=== PATIENT | female | born 1955 | race Caucasian/White ===

== ENCOUNTER 2019-05-28 20:53 | Inpatient (IN) | payer OTHER ==
[2019-05-28 21:24] VITALS: BMI 23.3
--- NOTE | 2019-05-28 21:57 | HP ---
CIWA Score Nausea/Vomitin Muscle Tremors: 2 Anxiety: 2 Agitation: 2 Paroxysmal Sweats: No Perspiration Orientation: 0-Oriented Tacttile Disturbances: 1-Very Mild Itch/Numbness Auditory Disturbances: 1-Very Mild Visual Disturbances: 1-Very Mild Sensitivity Headache: 0-None Present CIWA-Ar Total Score: 12 - Admission Criteria OASAS Guidelines: Admission for Medically Managed Detox: Requires at least one of the followin. CIWA greater than 12 2. Seizures within the past 24 hours 3. Delirium tremens within the past 24 hours 4. Hallucinations within the past 24 hours 5. Acute intervention needed for co occurring medical disorder 6. Acute intervention needed for co occurring psychiatric disorder 7. Severe withdrawal that cannot be handled at a lower level of care (continued vomiting, continued diarrhea, abnormal vital signs) requiring intravenous medication and/or fluids 8. Patient presents the following: CIWA greater than 12 Admission Criteria Met: Admission criteria met Admission ROS BHS - HPI Chief Complaint: i need to go to rehab and detox Allergies/Adverse Reactions: Allergies Allergy/AdvReac Type Severity Reaction Status Date / Time No Known Allergies Allergy Verified 05/28/19 21:11 History of Present Illness: longstanding ho etoh use beer and vodka 2 pints daily 6-7 tallboys daily x 2 weeks - Ebola screening Have you traveled outside of the country in the last 21 days: No (N) Have you had contact with anyone from an Ebola affected area: No Do you have a fever: No - Review of Systems Constitutional: Loss of Appetite EENT: reports: No Symptoms Reported Respiratory: reports: No Symptoms reported Cardiac: reports: No Symptoms Reported GI: reports: No Symptoms Reported : reports: No Symptoms Reported Musculoskeletal: reports: No Symptoms Reported Integumentary: reports: No Symptoms Reported Neuro: reports: No Symptoms reported Endocrine: reports: No Symptoms Reported Hematology: reports: No Symptoms Reported Psychiatric: reports: Anxious, Depressed Patient History - Patient Medical History Hx Anemia: No Hx Asthma: No Hx Chronic Obstructive Pulmonary Disease (COPD): No Hx Cancer: No Hx Cardiac Disorders: No Hx Congestive Heart Failure: No Hx Hypertension: Yes (metoprolo) Hx Hypercholesterolemia: No Hx Pacemaker: No HX Cerebrovascular Accident: No Hx Seizures: No Hx Dementia: No Hx Diabetes: No Hx Gastrointestinal Disorders: No Hx Liver Disease: No Hx Genitourinary Disorders: No Hx Sexually Transmitted Disorders: No Hx Renal Disease (ESRD): No Hx Thyroid Disease: No Hx Human Immunodeficiency Virus (HIV): No Hx Hepatitis C: No Hx Depression: No Hx Suicide Attempt: No Hx Bipolar Disorder: No Hx Schizophrenia: No Other Medical History: anxiety - Patient Surgical History Hx Section: Yes - Smoking Cessation Smoking history: Former smoker Have you smoked in the past 12 months: No Initiated information on smoking cessation: No - Substances abused Alcohol Substance route: Oral Frequency: Daily Amount used: 7 beers of 16 ounces Age of first use: 19 Date of last use: 05/28/19 Family Disease History - Family Disease History Family Disease History: [place]: Father Admission Physical Exam BHS - Vital Signs Vital Signs: Vital Signs - 24 hr 05/28/19 21:14 Temperature 96.6 F L Pulse Rate 65 Respiratory 18 Rate Blood Pressure 132/83 - Physical General Appearance: Yes: Alcohol on Breath, Anxious HEENTM: Yes: EOMI, Normal ENT Inspection, Normocephalic Respiratory: Yes: Chest Non-Tender, Lungs Clear, Normal Breath Sounds Neck: Yes: No masses,lesions,Nodules Breast: Yes: Breast Exam Deferred Cardiology: Yes: Regular Rhythm, Regular Rate, S1, S2 Abdominal: Yes: Normal Bowel Sounds, Non Tender Genitourinary: Yes: Within Normal Limits Back: Yes: Within Normal Limits, Normal Inspection Musculoskeletal: Yes: Within Normal Limits, full range of Motion, Gait Steady Extremities: Yes: Normal Capillary Refill, Normal Inspection, Normal Range of Motion, Non-Tender Neurological: Yes: contract design agent II-XII NML intact, Fully Oriented, Alert, Motor Strength 5/5, Normal Mood/Affect Integumentary: Yes: Within Normal Limits - Diagnostic (1) Alcohol dependence with withdrawal Current Visit: Yes Status: Acute (2) Hypertension Current Visit: Yes Status: Chronic Breathalyzer - Breathalyzer Breathalyzer: 0.146 Urine Drug Screen - Test Device Lot number: [id number] Expiration date: 03/06/21 - Control Is test valid?: Yes - Results Drug screen NEGATIVE: Yes Inpatient Rehab Admission - Rehab Decision to Admit Inpatient rehab admission?: No
[2019-05-28] MEDS ORDERED: MAGNESIUM HYDROX 2400MG/30ML ORAL SUSPENSION 30 ML CUP PO PRN (22:03)
[2019-05-28] MEDS ORDERED: ACETAMINOPHEN 325 MG TABLET (FP) PO PRN (22:03)
[2019-05-28] MEDS ORDERED: MAGNESIUM CITRATE 300 ML BOTTLE PO PRN (22:03)
[2019-05-28] MEDS ORDERED: BISMUTH SUBSALICYLATE 524 MG/30 ML UD PO PRN (22:03)
[2019-05-28] MEDS ORDERED: MENTHOL/PHENOL 1 EACH UD MM PRN (22:03)
[2019-05-28] MEDS ORDERED: hydrOXYzine PAMOATE 25 MG CAPSULE (FP) PO PRN (22:03)
[2019-05-28] MEDS ORDERED: MAG HYDROX/AL HYDROX/SIMETH 30 ML UNIT-DOSE CUP PO PRN (22:03)
[2019-05-28] MEDS: chlordiazePOXIDE HCL 25 MG CAPSULE PO SCH ×2 (23:30→23:36)
[2019-05-28] MEDS: MELATONIN 5 MG TABLETS PO PRN (23:31)
[2019-05-29] MEDS: chlordiazePOXIDE 5 MG CAPSULE PO SCH ×3 (05:48→22:47)
[2019-05-29] MEDS: ACETAMINOPHEN 325 MG TABLET (FP) PO PRN (09:14)
[2019-05-29] MEDS: PROCHLORPERAZINE MALEATE 5 MG TABLET PO PRN (09:48)
[2019-05-29] MEDS: PRENATAL VITAMINS W/ FOLIC ACID TABLET (FP) PO SCH (10:26)
[2019-05-29] MEDS: chlordiazePOXIDE HCL 10 MG CAPSULE PO PRN ×2 (10:27→17:59)
[2019-05-29 10:40] LABS: HEMATOCRIT 37.1 % (32.4-45.2); HEMOGLOBIN 12.5 GM/dL (10.7-15.3); MCH 31.5 pg (25.7-33.7); MCHC 33.8 g/dl (32.0-36.0); MEAN CELL VOLUME 93.1 fl (80-96); MEAN PLT VOLUME 8.4 fl (7.5-11.1); PLATELET COUNT 283 K/MM3 (134-434); RBC 3.98 M/mm3 (3.60-5.2); RDW 12.8 % (11.6-15.6); WHITE BLOOD COUNT 5.5 K/mm3 (4.0-10.0)
[2019-05-29 10:54] LABS: ALBUMIN 3.5 g/dl (3.4-5.0); BILIRUBIN,TOTAL 0.3 mg/dL (0.2-1); BLOOD UREA NITROGEN 17.5 mg/dL (7-18); CALCIUM 8.7 mg/dL (8.5-10.1); CREATININE 0.9 mg/dL (0.55-1.3); POTASSIUM 4.7 mmol/L (3.5-5.1)
[2019-05-29] MEDS: LOSARTAN POTASSIUM 25 MG TABLET PO SCH (11:27)
--- NOTE | 2019-05-29 11:47 | EKG ---
Test Reason : Blood Pressure : / mmHG Vent. Rate : 062 BPM Atrial Rate : 062 BPM P-R Int : 154 ms QRS Dur : 082 ms QT Int : 428 ms P-R-T Axes : 051 051 045 degrees QTc Int : 434 ms NORMAL SINUS RHYTHM NORMAL ECG NO PREVIOUS ECGS AVAILABLE Confirmed by RON METZGER, JONNIE ([id number]) on 05/29/2019 11:46:36 AM Referred By: Magda Millan Confirmed By:JONNIE VELASQUEZ MD
[2019-05-29] MEDS: IBUPROFEN 400 MG TABLET (FP) PO PRN (14:09)
--- NOTE | 2019-05-29 17:17 | PN ---
S CIWA - CIWA Score Nausea/Vomitin-Int. Nausea w/Dry Heave Muscle Tremors: 3 Anxiety: 4-Mod. Anxious/Guarded Agitation: 2 Paroxysmal Sweats: No Perspiration Orientation: 0-Oriented Tacttile Disturbances: 0-None Auditory Disturbances: 0-None Visual Disturbances: 1-Very Mild Sensitivity Headache: 0-None Present CIWA-Ar Total Score: 14 BHS Progress Note (SOAP) Subjective: Nausea, Dry Heaving, Anxious, Tremors. Objective: PATIENT PATIENT A & O X 3, OBSERVED AMBULATING ON UNIT UNASSISTED. IN NO ACUTE DISTRESS. 05/29/19 17:15 Vital Signs Temperature 97.1 F L 05/29/19 13:17 Pulse Rate 62 05/29/19 13:17 Respiratory Rate 18 05/29/19 13:17 Blood Pressure 165/99 05/29/19 13:17 O2 Sat by Pulse Oximetry (%) Laboratory Tests 05/29/19 05/29/19 05/29/19 07:00 07:00 07:00 WBC 5.5 RBC 3.98 Hgb 12.5 Hct 37.1 MCV 93.1 MCH 31.5 MCHC 33.8 RDW 12.8 Plt Count 283 MPV 8.4 Sodium 140 Potassium 4.7 Chloride 105 Carbon Dioxide 29 Anion Gap 6 L BUN 17.5 Creatinine 0.9 Est GFR (CKD-EPI)AfAm 79.42 Est GFR (CKD-EPI)NonAf 68.53 Random Glucose 77 Calcium 8.7 Total Bilirubin 0.3 AST 23 ALT 18 Alkaline Phosphatase 60 Total Protein 7.0 Albumin 3.5 RPR Titer Nonreactive LABS NOTED. Assessment: 05/29/19 17:15 WITHDRAWAL SYMPTOMS. HYPERTENSION. Plan: CONTINUE DETOX. PRN COMPAZINE PO FOR NAUSEA/ DRY HEAVING. BLOOD PRESSURE ELEVATED (PATIENT CURRENTLY PRESCRIBED LOSARTAN AND TOPROL XL - WILL CONTINUE TO MONITOR).
[2019-05-29] MEDS: THIAMINE HCL 100 MG TABLET (FP) PO SCH (22:47)
[2019-05-29] MEDS: MELATONIN 5 MG TABLETS PO PRN (22:48)
[2019-05-30] MEDS ORDERED: chlordiazePOXIDE HCL 10 MG CAPSULE PO PRN
[2019-05-30] MEDS: chlordiazePOXIDE HCL 10 MG CAPSULE PO SCH ×3 (05:30→22:25)
[2019-05-30] MEDS: ACETAMINOPHEN 325 MG TABLET (FP) PO PRN ×2 (09:24→19:40)
[2019-05-30] MEDS: PRENATAL VITAMINS W/ FOLIC ACID TABLET (FP) PO SCH (09:25)
[2019-05-30] MEDS: LOSARTAN POTASSIUM 25 MG TABLET PO SCH (09:25)
[2019-05-30] MEDS: PROCHLORPERAZINE MALEATE 5 MG TABLET PO PRN (09:25)
[2019-05-30] MEDS: METHOCARBAMOL 500 MG TABLET PO PRN ×2 (09:25→19:40)
--- NOTE | 2019-05-30 16:12 | PN ---
[facility] CIWA - CIWA Score Nausea/Vomitin Muscle Tremors: 3 Anxiety: 4-Mod. Anxious/Guarded Agitation: 2 Paroxysmal Sweats: No Perspiration Orientation: 0-Oriented Tacttile Disturbances: 0-None Auditory Disturbances: 0-None Visual Disturbances: 1-Very Mild Sensitivity Headache: 0-None Present CIWA-Ar Total Score: 12 BHS Progress Note (SOAP) Subjective: Anxious, Tremors, Nausea (Improving). Objective: PATIENT A & O X 3, OBSERVED AMBULATING ON UNIT UNASSISTED. IN NO ACUTE DISTRESS. 05/30/19 16:11 Vital Signs Temperature 97.5 F L 05/30/19 13:46 Pulse Rate 53 L 05/30/19 13:46 Respiratory Rate 18 05/30/19 13:46 Blood Pressure 150/86 05/30/19 13:46 O2 Sat by Pulse Oximetry (%) Laboratory Tests 05/29/19 05/29/19 05/29/19 07:00 07:00 07:00 WBC 5.5 RBC 3.98 Hgb 12.5 Hct 37.1 MCV 93.1 MCH 31.5 MCHC 33.8 RDW 12.8 Plt Count 283 MPV 8.4 Sodium 140 Potassium 4.7 Chloride 105 Carbon Dioxide 29 Anion Gap 6 L BUN 17.5 Creatinine 0.9 Est GFR (CKD-EPI)AfAm 79.42 Est GFR (CKD-EPI)NonAf 68.53 Random Glucose 77 Calcium 8.7 Total Bilirubin 0.3 AST 23 ALT 18 Alkaline Phosphatase 60 Total Protein 7.0 Albumin 3.5 RPR Titer Nonreactive LABS NOTED. Assessment: 05/30/19 16:11 WITHDRAWAL SYMPTOMS. HYPERTENSION. Plan: CONTINUE DETOX.
[2019-05-30] MEDS: MELATONIN 5 MG TABLETS PO PRN (22:25)
[2019-05-30] MEDS: THIAMINE HCL 100 MG TABLET (FP) PO SCH (22:25)
[2019-05-31] MEDS ORDERED: chlordiazePOXIDE HCL 10 MG CAPSULE PO ONE (05:00)
[2019-05-31] MEDS: chlordiazePOXIDE HCL 10 MG CAPSULE PO SCH ×2 (05:34→17:01)
[2019-05-31] MEDS: LOSARTAN POTASSIUM 25 MG TABLET PO SCH (10:53)
[2019-05-31] MEDS: ACETAMINOPHEN 325 MG TABLET (FP) PO PRN ×2 (10:54→17:01)
[2019-05-31] MEDS: METHOCARBAMOL 500 MG TABLET PO PRN ×3 (10:54→23:28)
[2019-05-31] MEDS: PRENATAL VITAMINS W/ FOLIC ACID TABLET (FP) PO SCH (10:55)
--- NOTE | 2019-05-31 15:37 | PN ---
[facility] CIWA - CIWA Score Nausea/Vomitin-No Nausea/No Vomiting Muscle Tremors: 2 Anxiety: 3 Agitation: 2 Paroxysmal Sweats: 1-Minimal Palms Moist Orientation: 0-Oriented Tacttile Disturbances: 0-None Auditory Disturbances: 0-None Visual Disturbances: 0-None Headache: 0-None Present CIWA-Ar Total Score: 8 S Progress Note (SOAP) Subjective: 64 years old female admitted on 05/28/19 for alcohol withdrawal sx management doing well with libirum detox regimen less tremor sleep better at night Objective: 05/31/19 15:38 Vital Signs Temperature 96.7 F L 05/31/19 13:22 Pulse Rate 65 05/31/19 13:22 Respiratory Rate 18 05/31/19 13:22 Blood Pressure 155/95 05/31/19 13:22 O2 Sat by Pulse Oximetry (%) Laboratory Last Values WBC 5.5 K/mm3 (4.0-10.0) 05/29/19 07:00 RBC 3.98 M/mm3 (3.60-5.2) 05/29/19 07:00 Hgb 12.5 GM/dL (10.7-15.3) 05/29/19 07:00 Hct 37.1 % (32.4-45.2) 05/29/19 07:00 MCV 93.1 fl (80-96) 05/29/19 07:00 MCH 31.5 pg (25.7-33.7) 05/29/19 07:00 MCHC 33.8 g/dl (32.0-36.0) 05/29/19 07:00 RDW 12.8 % (11.6-15.6) 05/29/19 07:00 Plt Count 283 K/MM3 (134-434) 05/29/19 07:00 MPV 8.4 fl (7.5-11.1) 05/29/19 07:00 Sodium 140 mmol/L (136-145) 05/29/19 07:00 Potassium 4.7 mmol/L (3.5-5.1) 05/29/19 07:00 Chloride 105 mmol/L (98-107) 05/29/19 07:00 Carbon Dioxide 29 mmol/L (21-32) 05/29/19 07:00 Anion Gap 6 MMOL/L (8-16) L 05/29/19 07:00 BUN 17.5 mg/dL (7-18) 05/29/19 07:00 Creatinine 0.9 mg/dL (0.55-1.3) 05/29/19 07:00 Est GFR (CKD-EPI)AfAm 79.42 05/29/19 07:00 Est GFR (CKD-EPI)NonAf 68.53 05/29/19 07:00 Random Glucose 77 mg/dL (74-106) 05/29/19 07:00 Calcium 8.7 mg/dL (8.5-10.1) 05/29/19 07:00 Total Bilirubin 0.3 mg/dL (0.2-1) 05/29/19 07:00 AST 23 U/L (15-37) 05/29/19 07:00 ALT 18 U/L (13-61) 05/29/19 07:00 Alkaline Phosphatase 60 U/L (45-117) 05/29/19 07:00 Total Protein 7.0 g/dl (6.4-8.2) 05/29/19 07:00 Albumin 3.5 g/dl (3.4-5.0) 05/29/19 07:00 RPR Titer Nonreactive (NONREACTIVE) 05/29/19 07:00 05/31/19 15:39 worry about discharge aftercare doing well with losartan and metoprolol Assessment: 05/31/19 15:40 alcohol withdrawa sx Laboratory Last Values WBC 5.5 K/mm3 (4.0-10.0) 05/29/19 07:00 RBC 3.98 M/mm3 (3.60-5.2) 05/29/19 07:00 Hgb 12.5 GM/dL (10.7-15.3) 05/29/19 07:00 Hct 37.1 % (32.4-45.2) 05/29/19 07:00 MCV 93.1 fl (80-96) 05/29/19 07:00 MCH 31.5 pg (25.7-33.7) 05/29/19 07:00 MCHC 33.8 g/dl (32.0-36.0) 05/29/19 07:00 RDW 12.8 % (11.6-15.6) 05/29/19 07:00 Plt Count 283 K/MM3 (134-434) 05/29/19 07:00 MPV 8.4 fl (7.5-11.1) 05/29/19 07:00 Sodium 140 mmol/L (136-145) 05/29/19 07:00 Potassium 4.7 mmol/L (3.5-5.1) 05/29/19 07:00 Chloride 105 mmol/L (98-107) 05/29/19 07:00 Carbon Dioxide 29 mmol/L (21-32) 05/29/19 07:00 Anion Gap 6 MMOL/L (8-16) L 05/29/19 07:00 BUN 17.5 mg/dL (7-18) 05/29/19 07:00 Creatinine 0.9 mg/dL (0.55-1.3) 05/29/19 07:00 Est GFR (CKD-EPI)AfAm 79.42 05/29/19 07:00 Est GFR (CKD-EPI)NonAf 68.53 05/29/19 07:00 Random Glucose 77 mg/dL (74-106) 05/29/19 07:00 Calcium 8.7 mg/dL (8.5-10.1) 05/29/19 07:00 Total Bilirubin 0.3 mg/dL (0.2-1) 05/29/19 07:00 AST 23 U/L (15-37) 05/29/19 07:00 ALT 18 U/L (13-61) 05/29/19 07:00 Alkaline Phosphatase 60 U/L (45-117) 05/29/19 07:00 Total Protein 7.0 g/dl (6.4-8.2) 05/29/19 07:00 Albumin 3.5 g/dl (3.4-5.0) 05/29/19 07:00 RPR Titer Nonreactive (NONREACTIVE) 05/29/19 07:00 lab noted Plan: continue libirum detox regimen
[2019-05-31] MEDS: THIAMINE HCL 100 MG TABLET (FP) PO SCH (22:35)
[2019-05-31] MEDS: MELATONIN 5 MG TABLETS PO PRN (22:36)
[2019-05-31] MEDS: IBUPROFEN 400 MG TABLET (FP) PO PRN (22:37)
[2019-06-01] MEDS: ACETAMINOPHEN 325 MG TABLET (FP) PO PRN ×2 (03:31→14:36)
[2019-06-01] MEDS ORDERED: chlordiazePOXIDE HCL 10 MG CAPSULE PO ONE (05:00)
[2019-06-01] MEDS: IBUPROFEN 400 MG TABLET (FP) PO PRN (05:32)
[2019-06-01 09:33] VITALS: PULSE 64
[2019-06-01] MEDS: PRENATAL VITAMINS W/ FOLIC ACID TABLET (FP) PO SCH (10:30)
[2019-06-01] MEDS: LOSARTAN POTASSIUM 25 MG TABLET PO SCH (10:30)
[2019-06-01] MEDS: METHOCARBAMOL 500 MG TABLET PO PRN ×2 (10:32→17:45)
--- NOTE | 2019-06-01 13:55 | PN ---
[facility] CIWA - CIWA Score Nausea/Vomitin-No Nausea/No Vomiting Muscle Tremors: 2 Anxiety: 3 Agitation: 2 Paroxysmal Sweats: No Perspiration Orientation: 0-Oriented Tacttile Disturbances: 0-None Auditory Disturbances: 0-None Visual Disturbances: 0-None Headache: 0-None Present CIWA-Ar Total Score: 7 S Progress Note (SOAP) Subjective: patient is anxious about 6 months facility does not have position for her today that she has long history of sobriety "working and living in a residential facility"
--- NOTE | 2019-06-01 15:09 | DS ---
[facility] Detox Discharge Summary Admission Date: 05/28/19 Discharge Date: 06/01/19 - History Present History: Alcohol Dependence Additional Comments: 64 female admitted on 05/28/19 for alcohol withdrawal sx management doing well with librium detox regimen no complication through out the detox stay alert oriented x 3 speech clearly steady gait denies dizziness no shortness of breath extremities full range of motion skin warm and dry - Physical Exam Results Vital Signs: Vital Signs Temperature 98.1 F 06/01/19 13:58 Pulse Rate 64 06/01/19 13:58 Respiratory Rate 16 06/01/19 13:58 Blood Pressure 166/92 06/01/19 13:58 O2 Sat by Pulse Oximetry (%) Pertinent Admission Physical Exam Findings: alcohol withdrawal sx Laboratory Last Values WBC 5.5 K/mm3 (4.0-10.0) 05/29/19 07:00 RBC 3.98 M/mm3 (3.60-5.2) 05/29/19 07:00 Hgb 12.5 GM/dL (10.7-15.3) 05/29/19 07:00 Hct 37.1 % (32.4-45.2) 05/29/19 07:00 MCV 93.1 fl (80-96) 05/29/19 07:00 MCH 31.5 pg (25.7-33.7) 05/29/19 07:00 MCHC 33.8 g/dl (32.0-36.0) 05/29/19 07:00 RDW 12.8 % (11.6-15.6) 05/29/19 07:00 Plt Count 283 K/MM3 (134-434) 05/29/19 07:00 MPV 8.4 fl (7.5-11.1) 05/29/19 07:00 Sodium 140 mmol/L (136-145) 05/29/19 07:00 Potassium 4.7 mmol/L (3.5-5.1) 05/29/19 07:00 Chloride 105 mmol/L (98-107) 05/29/19 07:00 Carbon Dioxide 29 mmol/L (21-32) 05/29/19 07:00 Anion Gap 6 MMOL/L (8-16) L 05/29/19 07:00 BUN 17.5 mg/dL (7-18) 05/29/19 07:00 Creatinine 0.9 mg/dL (0.55-1.3) 05/29/19 07:00 Est GFR (CKD-EPI)AfAm 79.42 05/29/19 07:00 Est GFR (CKD-EPI)NonAf 68.53 05/29/19 07:00 Random Glucose 77 mg/dL (74-106) 05/29/19 07:00 Calcium 8.7 mg/dL (8.5-10.1) 05/29/19 07:00 Total Bilirubin 0.3 mg/dL (0.2-1) 05/29/19 07:00 AST 23 U/L (15-37) 05/29/19 07:00 ALT 18 U/L (13-61) 05/29/19 07:00 Alkaline Phosphatase 60 U/L (45-117) 05/29/19 07:00 Total Protein 7.0 g/dl (6.4-8.2) 05/29/19 07:00 Albumin 3.5 g/dl (3.4-5.0) 05/29/19 07:00 RPR Titer Nonreactive (NONREACTIVE) 05/29/19 07:00 lab noted - Treatment Hospital Course: Detox Protocol Followed, Detoxed Safely, Responded well, Discharged Condition Good, Rehab Referral Accepted Patient has Accepted [facility] Referral [facility] - Medication Discharge Medications: Ambulatory Orders Losartan Potassium 25 mg PO DAILY #30 tablet 05/31/19 Metoprolol Succinate 200 mg PO DAILY #30 tab.er.24h 05/31/19 Losartan Potassium [Cozaar -] 25 mg PO DAILY #30 tablet 06/01/19 Methocarbamol [Robaxin -] 500 mg PO Q6H PRN #60 tablet 06/01/19 Metoprolol Succinate [Toprol XL -] 200 mg PO DAILY #30 tab.sr.24h 06/01/19 - Diagnosis (1) Alcohol dependence with withdrawal Current Visit: Yes Status: Acute Qualifiers: Complication of substance-induced condition: uncomplicated Qualified Code(s ): F10.230 - Alcohol dependence with withdrawal, uncomplicated (2) Hypertension Current Visit: Yes Status: Chronic Qualifiers: Hypertension type: essential hypertension Qualified Code(s): I10 - Essential (primary) hypertension - AMA Did Patient Leave Against Medical Advice: No CIWA Score - CIWA Score Nausea/Vomitin-No Nausea/No Vomiting Muscle Tremors: 1-None Visible, but [place] Anxiety: 2 Agitation: 1-Slight > Activity Paroxysmal Sweats: No Perspiration Orientation: 0-Oriented Tacttile Disturbances: 0-None Auditory Disturbances: 0-None Visual Disturbances: 0-None Headache: 0-None Present CIWA-Ar Total Score: 4
[2019-06-01 18:55] VITALS: BP 129/83; TEMP 97.3
== END 2019-06-01 21:05 | disposition home or self-care (01) | DRG 775 ==
LOC: YASAS 20:53 → Y3E 22:36 → Y3N 22:53
PROVIDERS: ADMIT Neuromusculoskeletal Medicine & OMM; ATTEND Surgery
PROC: HZ2ZZZZ Detoxification Services for Substance Abuse Treatment (ICD-10-PCS; principal; 2019-05-28)
DX: F10.230 Alcohol dependence with withdrawal, uncomplicated (principal); F41.9 Anxiety disorder, unspecified; I10 Essential (primary) hypertension
CPT/HCPCS: 36415; 80053; 85027; 86593; 93005; 93010